=== PATIENT | female | born 1985 | race Two or more races ===

== ENCOUNTER 2017-10-26 08:16 | Emergency (ER) | payer MEDICAID, OTHER ==
[~2017-10-26] VITALS: Ht 154.9 cm; Wt 81.6 kg
[2017-10-26] VITALS (12 sets, daily range): BP systolic 112–160; BP diastolic 69–90
[2017-10-26] MEDS ORDERED: Norco 5mg/325mg tab ORAL ONE (08:45)
--- NOTE | 2017-10-26 09:28 | Emergency Room Report ---
History of Present Illness General Chief Complaint: Pain Source: Patient Present Illness HPI 31-year-old female walked in with pain to right arm After falling out of "high" bed last night at 3 AM States unable to flex arm at elbow, pain localized to anterior part available Pain worse with supination and pronation arm and attempted flexion Denies pain to right shoulder right upper arm right forearm right wrist or right hand No previous injury to arm Allergies: Coded Allergies: No Known Allergies (Unverified , 10/26/17) Patient History Past Medical History: none Past Surgical History: none Pertinent Family History: none Social History: Denies: smoking, alcohol use, drug use Last Menstrual Period: 3 years ago Now: No Immunizations: UTD Reviewed Nursing Documentation: PMH: Agreed, PSxH: Agreed Nursing Documentation-PMH Hx Cardiac Problems: No Hx Hypertension: No Hx Pacemaker: No Hx Asthma: No Hx COPD: No Hx Diabetes: No Hx Cancer: No Hx Gastrointestinal Problems: No Hx Dialysis: No History Of Psychiatric Problem: No Hx Neurological Problems: No Hx Cerebrovascular Accident: No Hx Seizures: No Review of Systems All Other Systems: negative except mentioned in HPI Physical Exam Vital Signs Date Time Temp Pulse Resp B/P (MAP) Pulse Ox O2 Delivery O2 Flow Rate FiO2 10/26/17 08:20 97.3 111 14 126/68 98 Room Air Sp02 EP Interpretation: reviewed, normal General Appearance: normal inspection, well appearing, no apparent distress, alert, GCS 15, non-toxic Head: normocephalic, atraumatic Eyes: bilateral eye PERRL, bilateral eye EOMI ENT: normal ENT inspection, hearing grossly normal, normal voice Neck: normal inspection, full range of motion, supple, no bony tend Respiratory: normal inspection, lungs clear, normal breath sounds, no respiratory distress, no retraction, no wheezing Cardiovascular #1: regular rate, rhythm, no edema Gastrointestinal: normal inspection, normal bowel sounds, non tender, soft, no guarding, no hernia Genitourinary: no CVA tenderness Musculoskeletal: normal inspection, back normal, normal range of motion, Dede' s Sign negative, other - Right arm held in extension, obvious swelling to both sides of the anterior part of elbow with associated significant tenderness to palpation Neurologic: normal inspection, alert, responsive, speech normal Psychiatric: normal inspection, judgement/insight normal, mood/affect normal Skin: normal inspection, normal color, no rash Procedures Splinting Splinting : Consent: Verbal Hand-Made Type: plaster Splint: posterior long Pre-Proc Neuro Vasc Exam: normal Post-Proc Neuro Vasc Exam: normal Patient Tolerated: Well Complications: None Joint Reduction Joint Reduction : Consent: Written Joint Reduction Site: other - Right elbow Procedural Sedation: Yes Reduction Attempts: One Pre-Procedure NV Exam: Yes Post-Procedure NV Exam: Yes Post Joint Reduction Film: joint reduced Patient Tolerated: Well Complications: None Procedural Sedation Consent: Written Pre-Sedation Assessment: Elective Airway Assessment (Malampati): I Heart: normal Start Time: 12:07 End Time: 12:20 Communication: No Apparent Limitation Mental Status: Awake Respiration: Unlabored Skin Condition: WNL Abdomen: WNL Nausea: NO Vomiting: NO Medical Decision Making Diagnostic Impression: Primary Impression: Right elbow pain Additional Impressions: Posterior dislocation of elbow, closed Qualified Codes: S53.124A - Posterior dislocation of right ulnohumeral joint, initial encounter Fall Qualified Codes: W19.XXXA - Unspecified fall, initial encounter ER Course Unable to obtain lateral view of the elbow because patient unable to flex elbow Stat rad review of x-rays shows no acute traumatic abnormality No fracture seen However because of strong suspicion of dislocation CAT scan was obtained Shows posterior medial dislocation of elbow Patient underwent procedural sedation with reduction of dislocation Reduction accessible, seen on post, reduction films No fracture on post reduction films either Patient placed in long-arm splint with sling Advised keep the splint on until evaluated by orthopedics ER course: Patient has remained stable during ED stay. Patient is to be discharged to home. Prescriptions given are tylenol Patient is instructed to follow up with their primary care doctor within 5 days. Patient is instructed to follow up with orthopedist within 1 week Strict return precautions discussed with patient such as fever, chills, worsening/severe pain, nausea, vomiting, which may indicate severe illness. Patient verbalizes understanding and agrees with plan. Please note that this Emergency Department Report was dictated using [employer] dermatology technology software, occasionally this can lead to erroneous entry secondary to interpretation by the dictation equipment Other X-Ray Diagnostic Results Other X-Ray Diagnostic Results : X-Ray ordered: Right elbow # of Views/Limited Vs Complete: 2 View Indication: Other - S/p reduction EP Interpretation: Yes Interpretation: no dislocation, no fractures, other - Interval reduction of dislocation Electronically Signed by: Dr Phan Sanabria MD Last Vital Signs Date Time Temp Pulse Resp B/P (MAP) Pulse Ox O2 Delivery O2 Flow Rate FiO2 10/26/17 08:20 97.3 111 14 126/68 98 Room Air Status: improved Disposition: HOME, SELF-CARE Referrals: [facility] (PCP) PHAN SANABRIA M.D. Oct 26, 2017 09:28
--- NOTE | 2017-10-26 10:26 | Diagnostic Imaging Report ---
Indication: Pain Findings: 2 views of the right forearm were obtained. No acute fractures, malalignment, erosions or periostitis are identified. . Soft tissues are unremarkable. Impression: Negative for acute injury
--- NOTE | 2017-10-26 11:33 | Diagnostic Imaging Report ---
Indication: Elbow dislocation Technique: Continuous helical imaging of the elbow was obtained transaxially. 2-D coronal and sagittal reformatted images were obtained. Automatic Exposure Control was utilized. Total Dose length Product (DLP): [address] Dose Index Volume (CTDIvol): 0.15x3, 11.52 mGy Comparison: None Findings: There is complete dislocation of the radiocapitellar joint and ulnar trochlea joint. The olecranon process is dislocated posteriorly relative to the olecranon fossa. Both the radial head and the ulna/olecranon are displaced toward the medial aspect of the elbow relative to the distal humerus. There is no acute fracture identified. Interestingly not much if any joint effusion is seen. Impression: Posterior and medial medial dislocation of the elbow joint. No acute fracture identified. The CT scanner at [facility] is accredited by the [employer] and the scans are performed using dose optimization techniques as appropriate to a performed exam including Automatic Exposure control.
[2017-10-26] MEDS ORDERED: Ketamine HCl 100mg syr IV ONE (11:45)
[2017-10-26] MEDS ORDERED: ACETAMINOPHEN-1 EAC1 ORAL (12:52)
--- NOTE | 2017-10-27 10:34 | Diagnostic Imaging Report ---
Indication: Post reduction Findings: 2 views of the right elbow were obtained. Alignment is anatomic following reduction. There is a posterior splint device. Impression: Anatomic alignment. No fracture or other complication
== END 2017-10-26 16:05 | disposition home or self-care (01) ==
LOC: EMR 08:30
DX: S53.124A Posterior dislocation of right ulnohumeral joint, initial encounter (principal); W06.XXXA Fall from bed, initial encounter; Y92.003 Bedroom of unspecified non-institutional (private) residence as the place of occurrence of the external cause
CPT/HCPCS: 29105; 99284

== ENCOUNTER 2018-09-05 17:25 | Emergency (ER) | payer OTHER ==
[~2018-09-05] VITALS: Ht 154.9 cm; Wt 81.6 kg
[~2018-09-05 17:25] MED LIST: ACETAMINOPHEN-1 EAC1 ORAL
[2018-09-05 17:32] VITALS: BP 138/84
[2018-09-05] MEDS ORDERED: SUDAFED PE PRE1 EAC3 PO (17:59)
[2018-09-05] MEDS ORDERED: CLARITIN10 M1 ORAL (17:59)
--- NOTE | 2018-09-05 18:00 | Emergency Room Report ---
History of Present Illness General Chief Complaint: Earache Source: Patient Present Illness HPI 32-year-old female patient presents ER complaining of ear pain for the past 2 days. Denies ear drainage. Denies Q-tips use. Denies recent swimming. Denies fever, chest pain, cough, runny nose. Denies other acute symptoms. Denies recent travel. denies tooth pain. Denies sore throat. Allergies: Coded Allergies: No Known Allergies (Unverified , 09/05/18) Patient History Past Medical History: see triage record Last Menstrual Period: 3 years ago Now: No Reviewed Nursing Documentation: PMH: Agreed; PSxH: Agreed Nursing Documentation-PMH Past Medical History: No Stated History Hx Cardiac Problems: No Hx Hypertension: No Hx Pacemaker: No Hx Asthma: No Hx COPD: No Hx Diabetes: No Hx Cancer: No Hx Gastrointestinal Problems: No Hx Dialysis: No Hx Neurological Problems: No Hx Cerebrovascular Accident: No Hx Seizures: No Review of Systems All Other Systems: negative except mentioned in HPI Physical Exam Vital Signs Date Time Temp Pulse Resp B/P (MAP) Pulse Ox O2 Delivery O2 Flow Rate FiO2 09/05/18 17:32 98.8 84 15 138/84 96 Room Air 98.8 Sp02 EP Interpretation: reviewed, normal General Appearance: well appearing, no apparent distress, alert, GCS 15, non- toxic Head: normocephalic, atraumatic Eyes: bilateral eye normal inspection, bilateral eye PERRL ENT: hearing grossly normal, normal pharynx, no angioedema, normal voice, TMs + canals normal, uvula midline, moist mucus membranes, other - no cerumen, no mastoid swelling or tenderness; dental caries noted on left lower side of gum; no pharyngeal erythema or gum swelling Neck: full range of motion, no bony tend Respiratory: lungs clear, normal breath sounds, no rhonchi, no respiratory distress, no accessory muscle use, no wheezing, speaking full sentences Cardiovascular #1: regular rate, rhythm, no edema Gastrointestinal: non tender, soft, no mass, non-distended, no guarding, no rebound Genitourinary: no CVA tenderness Musculoskeletal: back normal, digits/nails normal, gait/station normal, normal range of motion, non-tender Neurologic: alert, oriented x3, responsive, motor strength/tone normal, sensory intact Psychiatric: mood/affect normal Skin: no rash Lymphatic: no adenopathy Medical Decision Making PA Attestation Dr. Vivas is my supervising Physician whom patient management has been discussed with. Diagnostic Impression: Primary Impression: Earache, left ER Course Pt presents to ED c/o ear pain. DDX considered but are not limited to rhinitis, sinusitis, otitis media, otitis externa, cellulitis, mastoiditis, cerumen impaction. Low suspicion for mastoiditis, no swelling or erythema noted posterior to ear, no TTP. VITAL SIGNS are WNL, patient is afebrile. ER COURSE: physical exam benign, no erythematous TM, no Erythematous canal, no edema canal , no cerumen impaction. no signs of infection. Does not require antibiotics at this time. possible eustachian tube dysfunction. Will provide decongestant medication for symptoms relief. Mouth shows possible dental carry, may be causing pain symptoms. advised patient to Followup with dentist. Followup with PCP for further treatment and referral as needed. DISCHARGE: -Rx provided for Claritin -Rx provided for Sudafed Take Tylenol and OTC medications for symptom relief; use as directed. At this time pt is stable for d/c to home. Patient is resting comfortably, in no acute disterss nontoxic appearing, talking without difficulty. Patient to take medications as instructed Will provide with patient care instructions and any necessary prescriptions. Care plan and follow-up instructions provided. Patient instructed to follow-up with primary care provider in 3 - 5 days. Patient questions asked and answered. Reports understanding and agreement to treatment plan. ER precautions given. Patient instructed to return to ER immediately for any new or worsening of symptoms including but not limited to increasing SOB, persistent fever. - Please note that this Emergency Department Report was dictated using [employer] drier technology software, occasionally this can lead to erroneous entry secondary to interpretation by the dictation equipment. Last Vital Signs Date Time Temp Pulse Resp B/P (MAP) Pulse Ox O2 Delivery O2 Flow Rate FiO2 09/05/18 17:32 98.8 84 15 138/84 96 Room Air 98.8 Disposition: HOME, SELF-CARE Condition: Stable Scripts Loratadine (CLARITIN) 10 Mg Tab.rapdis 10 MG ORAL DAILY, #30 TAB Prov: Jose R Maddox P.A. 09/05/18 Guaifen/Phenyleph/Acetaminophn (Sudafed PE Pressure+Pain+Mucus) 1 Each Tablet 1 EACH PO DAILY, #24 TAB Prov: Jose R Maddox 09/05/18 Patient Instructions: Dental Caries, [id number], Earache Additional Instructions: Followup with primary care provider in 3 -5 days. Follow-up with dentist. Take medications as directed. Patient questions asked and answered. ER precautions given, patient instructed to return to ER immediately for any new or worsening of symptoms. Jose R Maddox Sep 05, 2018 18:00
[2018-09-05 18:19] VITALS: BP 138/84
== END 2018-09-05 18:50 | disposition home or self-care (01) ==
LOC: EMR 18:46
DX: H92.02 Otalgia, left ear (principal)
CPT/HCPCS: 99282

== ENCOUNTER 2020-02-12 11:47 | Emergency (ER) | payer OTHER ==
[~2020-02-12] VITALS: Ht 154.9 cm; Wt 81.6 kg
[~2020-02-12 11:47] MED LIST changes: +CLARITIN10 M1 ORAL; +SUDAFED PE PRE1 EAC3 PO
[2020-02-12 12:15] VITALS: BP 130/90
--- NOTE | 2020-02-12 12:19 | NUR ---
ED Nurse Note: patient walked in to ER for c/o swelling to right ring finger. per pt she fell on it this morning.
--- NOTE | 2020-02-12 12:20 | NUR ---
ED Nurse Note: pt is unable to move/ wiggle her right ring finger .
--- NOTE | 2020-02-12 12:28 | NUR ---
ED Nurse Note: PT requires ct but is unable to sit still and keep his head sill for CT scan of the head. SRIA and JUAN ALBERTO made aware.
--- NOTE | 2020-02-12 12:28 | NUR ---
Note harlan in EDM - 02/12/20 at 1229 by ZACHARY ED Nurse Note: PT requires ct but is unable to sit still and keep his head sill for CT scan of the head. ERPA and JUAN ALBERTO made aware.
--- NOTE | 2020-02-12 12:36 | NUR ---
ED Nurse Note: x ray being done at bedside.
--- NOTE | 2020-02-12 12:56 | NUR ---
ED Nurse Note: ERPA at bedside discussing about x-ray results.
--- NOTE | 2020-02-12 13:02 | Emergency Room Report ---
History of Present Illness General Chief Complaint: Upper Extremity Injury Present Illness HPI 34-year-old female presents to the emergency department complaining of 8 out of 10 severity localized pain, swelling, tenderness and bruising to the distal aspect of the right ring finger since this morning. Patient status post mechanical fall. Patient denies hitting her head or having a loss of consciousness. She denies midline neck or back pain. Patient reports she is not quite sure exactly how she hurt her finger however she knows it happened during the fall. Patient states that she is right-hand dominant. She reports attempts to straighten the finger or palpation exacerbates her pain. She states she has not taken any medication for her symptoms. No other aggravating or relieving factors at this time. Denies numbness tingling or loss of sensation or gross motor movements of the extremities, incontinence of bowel or bladder. Denies CP, Palpitations, LOC, AMS, dizziness, Changes in Vision, weakness or a sudden severe headache. She denies or suspicion of . COVID-19 risk:Contact w/high r: No COVID-19 risk:Travel to affect: No Has patient experienced martinez: No Allergies: Coded Allergies: No Known Allergies (Unverified , 09/05/18) Patient History Past Medical History: see triage record Past Surgical History: none Pertinent Family History: none Now: No Reviewed Nursing Documentation: PMH: Agreed; PSxH: Agreed Nursing Documentation-PMH Hx Cardiac Problems: No Hx Hypertension: No Hx Pacemaker: No Hx Asthma: No Hx COPD: No Hx Diabetes: No Hx Cancer: No Hx Gastrointestinal Problems: No Hx Dialysis: No Hx Neurological Problems: No Hx Cerebrovascular Accident: No Hx Seizures: No Review of Systems All Other Systems: negative except mentioned in HPI Physical Exam Vital Signs Date Time Temp Pulse Resp B/P (MAP) Pulse Ox O2 Delivery O2 Flow Rate FiO2 20 12:04 98.2 79 20 132/96 (108) 98 Room Air Sp02 EP Interpretation: reviewed, normal General Appearance: no apparent distress, alert, GCS 15, non-toxic Head: normocephalic, atraumatic Eyes: bilateral eye normal inspection, bilateral eye PERRL ENT: hearing grossly normal, normal voice Neck: full range of motion Respiratory: lungs clear, normal breath sounds, speaking full sentences Cardiovascular #1: regular rate, rhythm, normal capillary refill Cardiovascular #2: 2+ radial (R), 2+ radial (L) Musculoskeletal: gait/station normal, tender - TTP , swelling, bruising and limited ROM of distal right 4th digit Neurologic: alert, motor strength/tone normal, oriented x3, sensory intact, responsive, speech normal Psychiatric: judgement/insight normal Skin: Ecchymosis/Bruising - DIP right 4th digit Lymphatic: no adenopathy Medical Decision Making PA Attestation Dr. Bacon is my supervising Physician whom patient management has been discussed with. Diagnostic Impression: Primary Impression: Phalanx, distal fracture of finger Qualified Codes: S62.664A - Nondisplaced fracture of distal phalanx of right ring finger, initial encounter for closed fracture ER Course 34-year-old female presents to the emergency department complaining of 8 out of 10 severity localized pain, swelling, tenderness and bruising to the distal aspect of the right ring finger since this morning. Patient status post mechanical fall. Patient denies hitting her head or having a loss of consciousness. She denies midline neck or back pain. Patient reports she is not quite sure exactly how she hurt her finger however she knows it happened during the fall. Patient states that she is right-hand dominant. She reports attempts to straighten the finger or palpation exacerbates her pain. She states she has not taken any medication for her symptoms. No other aggravating or relieving factors at this time. Denies numbness tingling or loss of sensation or gross motor movements of the extremities, incontinence of bowel or bladder. Denies CP, Palpitations, LOC, AMS, dizziness, Changes in Vision, weakness or a sudden severe headache. She denies or suspicion of . Ddx considered but are not limited to Fracture, dislocation, contusion, Sprain/ Strain/Spasm, Vital signs: are WNL, pt. is afebrile H&PE are most consistent with musculoskeletal injury will perform imaging to r/ o fractures/dislocations. ORDERS: - X-ray Right hand 3 views POSITIVE FOR FRACTURE, Negative for: Dislocation, or significant soft tissue injury, per preliminary read in ED, and signed by THEODORA Sanchez, my supervising physician has reviewed, and agrees with my interpretation. ED INTERVENTIONS: - Motrin 600mg pO -Right ring finger splint applied by product technology scientist. Pt. remains neurovascularly intact. - Right arm Sling applied by product technology scientist. Pt. remains neurovascularly intact. DISCHARGE: At this time pt. is stable for d/c to home. Will provide printed patient care instructions, and any necessary prescriptions. Care plan and follow up instructions have been discussed with the patient prior to discharge. Other X-Ray Diagnostic Results Other X-Ray Diagnostic Results : X-Ray ordered: RIght Hand # of Views/Limited Vs Complete: 3 View Indication: Pain EP Interpretation: Yes PA Xray: Interpretation reviewed, by supervising MD, and agrees with findings. Interpretation: no dislocation, no soft tissue swelling, other - nondisplaced distal phalanx fx of the 4th digit Impression: Other - abnormal: fx. Electronically Signed by: Solange Hartman_Dai Last Vital Signs Date Time Temp Pulse Resp B/P (MAP) Pulse Ox O2 Delivery O2 Flow Rate FiO2 02/12/20 12:15 98.2 80 16 130/90 98 Room Air Disposition: HOME, SELF-CARE Condition: Stable Scripts Hydrocodone Bit/Acetaminophen (HYDROCODON-ACETAMINOPHEN 5-300) 1 Each Tablet 1 EACH PO Q6HR, #12 TAB Prov: Solange Sanchez 02/12/20 Ibuprofen* (MOTRIN*) 600 Mg Tablet 600 MG ORAL THREE TIMES A DAY, #30 TAB 0 Refills Prov: Solange Sanchez 02/12/20 Referrals: [facility] (PCP) Orthopedic Urgent Care Departure Forms: Return to Work Return to Work Date: Feb 15, 2020 Work Restrictions: No Heavy Lifting Other Restrictions: limited use of right hand, wear finger splint. Return to Full Activity: Mar 11, 2020 Patient Instructions: Finger Fracture, [id number] Additional Instructions: Take medications as directed. Follow up with an PATIENT ACCOUNT LIAISON in 3-5 days, even if your symptoms have resolved. --Please review list of primary care clinics, if you do not already have a primary care provider who can give you an Orthopedic Referral. Return sooner to ED if new symptoms occur, or current symptoms become worse. Do not drink alcohol, drive, or operate heavy machinery while taking [place] as this may cause drowsiness. - Please note that this Emergency Department Report was dictated using [employer] bone drier technology software, occasionally this can lead to erroneous entry secondary to interpretation by the dictation equipment. Solange Sanchez Feb 12, 2020 13:02
[2020-02-12] MEDS ORDERED: IBUPROFEN600 MG ORAL ×4 (13:03→15:22)
[2020-02-12] MEDS ORDERED: HYDROCODON-ACE1 EA18 PO ×4 (13:03→15:22)
--- NOTE | 2020-02-12 13:18 | NUR ---
ED Nurse Note: splint on Rt 4th finger and arm sling on Rt arm applied at bedside.
[2020-02-12 13:20] VITALS: BP 122/74
--- NOTE | 2020-02-12 13:21 | NUR ---
ED Nurse Note: Pt cleared by health care Provider for discharge. Patient provided splint and sling. DC instructions/electronically sent prescription was given and explained to pt and verbalized understanding of teachings. All medical deviecs such as ID band removed. Pt is AAO x4, ambulatory and left with all personal belongings.
--- NOTE | 2020-02-12 13:28 | Diagnostic Imaging Report ---
Indication: Right hand pain Technique: 3 views right hand Comparison: none Findings: No acute fractures. No dislocations. The joint spaces are preserved. Impression: Negative
== END 2020-02-12 13:22 | disposition home or self-care (01) ==
LOC: EMR 12:10
DX: S62.664A Nondisplaced fracture of distal phalanx of right ring finger, initial encounter for closed fracture (principal); W01.0XXA Fall on same level from slipping, tripping and stumbling without subsequent striking against object, initial encounter; Y93.9 Activity, unspecified; Y92.9 Unspecified place or not applicable
CPT/HCPCS: 29130; 73130; Z7502; 29125; 99283